=== PATIENT | male | born 1990 | race Caucasian/White ===

== ENCOUNTER 2021-03-11 16:57 | Emergency (ER) | payer OTHER ==
[~2021-03-11] VITALS: Ht 177.8 cm; Wt 97.5 kg
[2021-03-11 17:32] LABS: ABSOLUTE BASOPHILS 0.1 thou/uL (0.0-0.2); ABSOLUTE EOSINOPHILS 0.2 thou/uL (0.0-0.7); ABSOLUTE LYMPHOCYTES 1.8 thou/uL (0.8-5.3); ABSOLUTE MONOCYTES 0.7 thou/uL (0.0-1.2); ABSOLUTE NEUTROPHILS 10.5 thou/uL (1.6-8.1); BASOPHILS 0.4 %; EOSINOPHILS 1.4 %; HEMATOCRIT 45.1 % (42.0-52.0); HEMOGLOBIN 15.8 gm/dL (14.0-18.0); LYMPHOCYTES 13.7 %; MCH 31.3 pg (26.0-34.0); MCHC 35.1 g/dL (28.0-37.0); MCV 89.2 fL (80.0-100.0); MONOCYTES 5.5 %; MPV 6.3 fl. (7.2-11.1); NUCLEATED RBCS 0 /100WBC; PLATELET COUNT* 328 thou/uL (150-400); RBC 5.06 mil/uL (4.50-6.00); RDW-CV 13.5 % (10.5-14.5); WBC 13.2 thou/uL (4.0-11.0)
[2021-03-11 17:45] LABS: CALCIUM 10.5 mg/dL (8.5-10.1); CREATININE 1.9 mg/dL (0.6-1.3); POTASSIUM 4.2 mmol/L (3.5-5.1)
[2021-03-11 17:50] LABS: ALBUMIN 4.8 g/dL (3.4-5.0); TOTAL BILIRUBIN 0.5 mg/dL (<0.1-1.0); TOTAL PROTEIN 8.2 g/dL (6.4-8.2)
[2021-03-11 19:24] LABS: URINE BILIRUBIN NEGATIVE (Negative); URINE BLOOD NEGATIVE (Negative); URINE CLARITY CLEAR; URINE COLOR YELLOW; URINE GLUCOSE-RANDOM NEGATIVE (Negative); URINE KETONES NEGATIVE (Negative); URINE LEUKOCYTES-REFLEX NEGATIVE (Negative); URINE NITRITE-REFLEX NEGATIVE (Negative); URINE PROTEIN TRACE (Negative); URINE SPECIFIC GRAVITY 1.025 (1.005-1.030); URINE UROBILINOGEN 0.2 E.U./dl (0.2-1.0)
[2021-03-11 21:11] LABS: CALCIUM 8.6 mg/dL (8.5-10.1); CREATININE 1.1 mg/dL (0.6-1.3); POTASSIUM 4.2 mmol/L (3.5-5.1)
[2021-03-11 21:40] VITALS: BP 128/70
--- NOTE | 2021-03-12 11:39 | EKG ---
[place] [address] ELECTROCARDIOGRAM REPORT Name: ETHEL GOMEZ Room: [facility]#: [id number] Admission: 03/11/21 Attend Phys: Discharge: 03/11/21 Date of : 89 Date of Service: 03/11/21 1700 Report #: [id number] THIS REPORT FOR: //name// [facility] ED Test Date: 2021-03-11 Test Time: 17:00:21 Pat Name: ETHEL GOMEZ Department: Room: Gender: [employer] 1990 Requested By: Lucas Sorensen Order Number: [id number] MD: Mayur Devine Measurements Intervals [place] Rate: 94 P: 57 LA: 136 QRS: 65 QRSD: 92 T: 48 QT: 335 QTc: 419 Interpretive Statements Sinus rhythm ST elev, probable normal early repol pattern No previous ECG available for comparison Electronically Signed On 03-12-2021 11:39:32 CDT by Mayur Devine [email or web address] <ELECTRONICALLY SIGNED> By: Mayur Devine MD, [facility] 03/12/21 1139 1700 170 Mayur Devine MD, [facility] /EPI
== END 2021-03-11 21:41 | disposition home or self-care (01) ==
LOC: M.ERS 16:57
PROVIDERS: Emergency Medicine; Emergency Medicine Emergency Medical Services
DX: T67.5XXA Heat exhaustion, unspecified, initial encounter (principal); Y92.89 Other specified places as the place of occurrence of the external cause